=== PATIENT | female | born 1940 | race Caucasian/White ===

== ENCOUNTER 2016-08-07 09:10 | Outpatient (CLI) | payer MEDICARE, OTHER ==
[2016-08-07 10:13] LABS: EOSINOPHILS % 2.3 % (0.0-6.8); MEAN CORPUSCULAR HEMOGLOBIN 28.5 pg (28.0-34.0); MEAN CORPUSCULAR VOLUME 83.8 fl (80.0-100.0); MONOCYTES % 9.3 % (0.0-11.0)
[2016-08-07 10:41] LABS: eGFR (African) > 60; eGFR (Non-African) > 60
== END 2016-08-07 09:11 ==
LOC: OUT 09:10
PROVIDERS: ATTEND General Practice
DX: N81.10 Cystocele, unspecified (principal); E03.9 Hypothyroidism, unspecified; E55.9 Vitamin D deficiency, unspecified; Z79.899 Other long term (current) drug therapy
CPT/HCPCS: 36415; 80053; 80061; 82306; 84439; 84443; 84550; 85025; G0463

== ENCOUNTER 2017-02-05 08:58 | Outpatient (CLI) | payer MEDICARE, OTHER | END 2017-02-05 10:38 | LOC: OUT 08:58 | PROVIDERS: ATTEND General Practice | DX: N81.10 Cystocele, unspecified (principal) | CPT/HCPCS: G0463 ==

== ENCOUNTER 2017-06-25 09:22 | Outpatient (CLI) | payer MEDICARE, OTHER | END 2017-06-25 09:23 | LOC: OUT 09:22 | PROVIDERS: ATTEND General Practice | DX: N81.10 Cystocele, unspecified (principal) | CPT/HCPCS: G0463 ==

== ENCOUNTER 2017-08-20 08:27 | Outpatient (CLI) | payer MEDICARE, OTHER | END 2017-08-20 08:30 | LOC: OUT 08:27 | PROVIDERS: ATTEND General Practice | DX: Z48.89 Encounter for other specified surgical aftercare (principal) | CPT/HCPCS: G0463 ==